=== PATIENT | female | born 1935 | race African-American/Black ===

== ENCOUNTER → 2016-10-04 | Outpatient (CLI) | payer MEDICARE ==
[~2016-10-04] MED LIST: ALBUTEROL17 GM INH; ALEVE220 M1 PO; CRESTOR; FERROUS GLUCON324 MG PO; FLAGYL PO; FLEXERIL PO; GLIMEPIRIDE1 M1 PO; GLIPIZIDE PO; GLIPIZIDE10 MG PO; GLUCOTROL PO; GLUCOTROL XL PO; INSULIN; LANTUS100 U/ML SUBQ; LEVAQUIN PO; LEVEMIR SUBQ; LISINOPRIL5 MG PO; LORTAB 5-325 M1 EACH PO; MELOXICAM7.5 MG/5 M PO; METFORMIN PO; PRAVASTATIN PO; PRAVASTATIN SOD40 MG PO; SINGULAIR PO; ZOCOR PO; [UNRECOGNIZED DRUG - REMARK]
--- NOTE | ~2016-10-04 | BD1 ---
[facility] A Service of [facility] RADIOLOGY TEXT RESULTS PATIENT: LISA GONZALES LOCATION: [facility] : 35 UNIT #: [id number] AGE: [address]: Rene Muro MD SEX: F ORDER DR: [id number] [address] [address] [id number] O MR#: [id number] Acc #: [id number] NAME: LISA GONZALES. : 1935 SEX: F STUDY DATE/TIME: 10/04/2016 13:03 UNIT: [facility] ROOM: STUDY DESCRIPTION: BD Dexa Bone Dens 1+ Site Attending Physician: Rene Muro Jr., M.D. Referring Physician: Rene Muro Jr., M.D. Ordering Physician: Rene Muro Jr., M.D. Primary Care Physician: Rene Muro Jr., M.D. MEDICAL IMAGING REPORT This report is preliminary unless electronic signature is present. EXAM DXA scan 10/04/2016 HISTORY Status post menopause with no hormone replacement therapy. Osteopenia. FINDINGS Bone mineral density in the lumbar spine from L1-L4 on 1.5 g/cm2 which is 2.7 standard deviations above the mean when compared to the young adult reference population which is within the range of normal. This is 3.3 standard deviations above the mean when compared to the age-matched population. Bone mineral density in the left femoral neck was 0.803 g/cm2 which is 1.7 standard deviations below the mean when compared to the young adult reference population which is characteristic of osteopenia. This is 0.7 standard deviations below the mean when compared to the age-matched population. Bone mineral density in the right femoral neck was 0.911 g/cm2 which is 0.9 standard deviations below the mean when compared to the young adult reference population which is within the range of normal. This is 00 standard deviations from the mean when compared to the age-matched population. IMPRESSION Bone mineral density in the lumbar spine and right hip within the range of normal and within the left hip characteristic of osteopenia. Dictated by... Miles Whelan M.D. THIS IS AN ELECTRONICALLY VERIFIED REPORT Miles Whelan M.D. at 10/05/2016 8:11 AM KRT/rnr TD: 10/04/2016 14:12 [facility] A Service of [facility] RADIOLOGY TEXT RESULTS PATIENT: LISA GONZALES [facility] : 35 UNIT #: [id number] AGE: [address]: Rene Muro MD SEX: F ORDER DR: JOB #: [id number] MEDICAL IMAGING REPORT Page 1 of 1
== END | disposition home or self-care (01) ==
LOC: SRAD 13:30
DX: Z13.820 Encounter for screening for osteoporosis (principal); Z78.0 Asymptomatic menopausal state
CPT/HCPCS: 77080